=== PATIENT | male | born 1970 | race Caucasian/White ===

== ENCOUNTER 2018-05-01 12:06 | Emergency (ER) | payer BC ==
[2018-05-01] MEDS ORDERED: Sodium Chloride 0.9% 1000 ML 1,000 ML IV STA (13:11)
[2018-05-01] MEDS ORDERED: Zofran 4 MG/2 ML VIAL IV ONE (13:11)
--- NOTE | 2018-05-01 13:11 | ERPHSYRPT ---
- History of Present Illness Time Seen by Provider: 05/01/18 13:06 Source: patient Exam Limitations: no limitations Patient Subjective Stated Complaint: cough x 3 days. general body aches. ridge has been coughing up. denies fever. but has felt hot and cold. vomiting x 3 days. Triage Nursing Assessment: alert and obvious sick. ridge has been sick x 3 days. productive cough of greenish. ridge is now in his head with congerstion. denies fever. lungs clear bilaterally. states has been vomiting x 3 days. abdomen soft. + BS X 4. Physician History: The patient is a 47-year-old male complaining of cough and muscle aches for 3 days. He is also been vomiting. He hasn't been able to keep liquids down for the past 2-3 days. He has a headache. He denies sore throat. He denies diarrhea. He did not even influenza vaccination this year. He has head congestion. His past medical history is significant only for GERD. Timing/Duration: day(s) (3) Cough Quality/Degree: moderate, sputum Possible Cause: no prior episodes Modifying Factors: Improves With: coughing Associated Symptoms: cough, lightheadedness, muscle aches, nasal congestion - Review of Systems Constitutional: No Fever, No Chills Eyes: No Symptoms Ears, Nose, & Throat: No Symptoms Respiratory: Cough Cardiac: Chest Pain (with cough) Abdominal/Gastrointestinal: Nausea, Vomiting, No Abdominal Pain, No Diarrhea Genitourinary Symptoms: No Dysuria Musculoskeletal: No Back Pain, No Neck Pain Skin: No Rash Neurological: No Dizziness, No Focal Weakness, No Sensory Changes Psychological: No Symptoms Endocrine: No Symptoms Hematologic/Lymphatic: No Symptoms Immunological/Allergic: No Symptoms All Other Systems: Reviewed and Negative - Past Medical History Pertinent Past Medical History: Yes GI Medical History: GERD - Past Surgical History Past Surgical History: No - Social History Smoking Status: Never smoker Exposure to second hand smoke: No Drug Use: none Patient Lives Alone: No - Nursing Vital Signs Nursing Vital Signs: Initial Vital Signs Temperature 98.6 F 05/01/18 12:19 Pulse Rate 88 05/01/18 12:19 Respiratory Rate 22 05/01/18 12:19 Blood Pressure 120/86 05/01/18 12:19 O2 Sat by Pulse Oximetry 97 05/01/18 12:19 Pain Scale Pain Intensity 8 - Physical Exam General Appearance: mild distress Eye Exam: PERRL/EOMI, eyes nml inspection Ears, Nose, Throat Exam: TMs normal, pharynx normal, moist mucous membranes, pharyngeal erythema Neck Exam: normal inspection, non-tender, supple, full range of motion Respiratory Exam: normal breath sounds, lungs clear, No respiratory distress Cardiovascular Exam: regular rate/rhythm, normal heart sounds Gastrointestinal/Abdomen Exam: soft, No tenderness Rectal Exam: not done Back Exam: normal inspection, No CVA tenderness, No vertebral tenderness Extremity Exam: normal inspection, normal range of motion Neurologic Exam: alert, oriented x 3, cooperative, normal mood/affect, sensation nml, No motor deficits Skin Exam: normal color, warm, dry, No rash Lymphatic Exam: No adenopathy SpO2 Interpretation: normal SpO2: 97 O2 Delivery: Room Air - Radiology Exams Chest X-ray Interpretation: Interpreted by me, Infiltrates (right lower lung infiltrate, no comps) Ordered Tests: Active Orders 24 hr Category Date Time Status CHEST 2 VIEWS (PA AND LAT) Stat Exams 05/01/18 13:13 Taken CBC W DIFF Stat Lab 05/01/18 13:25 Completed CMP Stat Lab 05/01/18 13:25 Completed Lactic Acid Stat Lab 05/01/18 13:20 Completed Medication Summary Generic Name Dose Route Start Last Admin Trade Name Freq PRN Reason Stop Dose Admin Ceftriaxone Sodium/Dextrose 1 g in 50 mls @ 100 mls/hr 05/01/18 15:18 Rocephin 1 Gm-D5w 50 Ml Bag IV 05/01/18 15:47 STAT STA Discontinued Medications Generic Name Dose Route Start Last Admin Trade Name Freq PRN Reason Stop Dose Admin Sodium Chloride 1,000 mls @ 999 mls/hr 05/01/18 13:11 05/01/18 14:41 Sodium Chloride 0.9% 1000 Ml IV 05/01/18 14:11 Infused .Q1H1M STA Infusion Sodium Chloride Confirm 05/01/18 13:25 Sodium Chloride 0.9% 1000 Ml Administered 05/01/18 13:26 Dose 1,000 mls @ ud .ROUTE .STK-MED ONE Ceftriaxone Sodium/Dextrose Confirm 05/01/18 15:22 Rocephin 1 Gm-D5w 50 Ml Bag Administered 05/01/18 15:23 Dose 1 g in 50 mls @ ud IV .STK-MED ONE Ketorolac Tromethamine 30 mg 05/01/18 13:12 05/01/18 13:35 Toradol 30 Mg Injection IV 05/01/18 13:13 30 mg STAT ONE Administration Ketorolac Tromethamine Confirm 05/01/18 13:25 Toradol 30 Mg Injection Administered 05/01/18 13:26 Dose 30 mg .ROUTE .STK-MED ONE Ondansetron HCl 4 mg 05/01/18 13:11 05/01/18 13:34 Zofran 4 Mg/2 Ml Vial IV 05/01/18 13:12 4 mg STAT ONE Administration Ondansetron HCl Confirm 05/01/18 13:25 Zofran 4 Mg/2 Ml Vial Administered 05/01/18 13:26 Dose 4 mg .ROUTE .STK-MED ONE Lab/Rad Data: Laboratory Result Diagrams 05/01/18 13:25 05/01/18 13:25 Laboratory Results 05/01/18 05/01/18 05/01/18 Range/Units 13:25 13:25 13:25 WBC 5.9 (4.0-10.5) K/mm3 RBC 5.02 (4.1-5.6) M/mm3 Hgb 15.1 (12.5-18.0) gm/dl Hct 44.2 (42-50) % MCV 88.0 (78-100) fl MCH 30.1 (26-32) pg MCHC 34.2 (32-36) g/dl RDW 14.0 (11.5-14.0) % Plt Count 186 (150-450) K/mm3 MPV 10.1 H (6-9.5) fl Gran % 72.0 H (36.0-66.0) % Eos # (Auto) 0.01 (0-0.5) Absolute Lymphs (auto) 0.75 L (1.0-4.6) Absolute Monos (auto) 0.87 (0.0-1.3) Lymphocytes % 12.8 L (24.0-44.0) % Monocytes % 14.8 H (0.0-12.0) % Eosinophils % 0.2 (0.00-5.0) % Basophils % 0.2 (0.0-0.4) % Absolute Granulocytes 4.22 (1.4-6.9) Basophils # 0.01 (0-0.4) Sodium 137 (137-145) mmol/L Potassium 3.7 (3.5-5.1) mmol/L Chloride 100 (98-107) mmol/L Carbon Dioxide 23 (22-30) mmol/L Anion Gap 17.5 H (5-15) MEQ/L BUN 17 (9-20) mg/dL Creatinine 1.15 (0.66-1.25) mg/dL Estimated GFR > 60.0 ML/MIN Glucose 113 H (74-106) mg/dL Lactic Acid (0.4-2.0) Calcium 9.3 (8.4-10.2) mg/dL Total Bilirubin 0.60 (0.2-1.3) mg/dL AST 52 (17-59) U/L ALT 32 (0-50) U/L Alkaline Phosphatase 52 (38-126) U/L Serum Total Protein 7.9 (6.3-8.2) g/dL Albumin 4.8 (3.5-5.0) g/dL Influenza Type A Ag POSITIVE (NEGATIVE) Influenza Type B Ag NEGATIVE (NEGATIVE) RSV (PCR) NEGATIVE (Negative) Group A Strep Antibody NEGATIVE (NEGATIVE) 05/01/18 Range/Units 13:20 WBC (4.0-10.5) K/mm3 RBC (4.1-5.6) M/mm3 Hgb (12.5-18.0) gm/dl Hct (42-50) % MCV (78-100) fl MCH (26-32) pg MCHC (32-36) g/dl RDW (11.5-14.0) % Plt Count (150-450) K/mm3 MPV (6-9.5) fl Gran % (36.0-66.0) % Eos # (Auto) (0-0.5) Absolute Lymphs (auto) (1.0-4.6) Absolute Monos (auto) (0.0-1.3) Lymphocytes % (24.0-44.0) % Monocytes % (0.0-12.0) % Eosinophils % (0.00-5.0) % Basophils % (0.0-0.4) % Absolute Granulocytes (1.4-6.9) Basophils # (0-0.4) Sodium (137-145) mmol/L Potassium (3.5-5.1) mmol/L Chloride (98-107) mmol/L Carbon Dioxide (22-30) mmol/L Anion Gap (5-15) MEQ/L BUN (9-20) mg/dL Creatinine (0.66-1.25) mg/dL Estimated GFR ML/MIN Glucose (74-106) mg/dL Lactic Acid 0.9 (0.4-2.0) Calcium (8.4-10.2) mg/dL Total Bilirubin (0.2-1.3) mg/dL AST (17-59) U/L ALT (0-50) U/L Alkaline Phosphatase (38-126) U/L Serum Total Protein (6.3-8.2) g/dL Albumin (3.5-5.0) g/dL Influenza Type A Ag (NEGATIVE) Influenza Type B Ag (NEGATIVE) RSV (PCR) (Negative) Group A Strep Antibody (NEGATIVE) - Progress Progress: improved Air Movement: good Progress Note: 05/01/18 15:24 Pt given toradol 30 and fluids by IV and is feeling better. Antibiotics given: Yes Counseled pt/family regarding: lab results, diagnosis, need for follow-up, rad results - Departure Time of Disposition: 15:24 Departure Disposition: Home Clinical Impression: Influenza A, Infiltrate noted on imaging study Condition: Stable Critical Care Time: No Referrals: NATHAN FERNÁNDEZ MD [Primary Care Provider] - Additional Instructions: You have an influenza a infection. You also have an infiltrate (pneumonia) in your right lung. You were given Toradol 30 mg, Rocephin 1 g, and fluids by IV in the ER. Take azithromycin 500 mg on day one. Then take azithromycin 250 mg daily for days 2 through 5. Follow-up with your primary medical doctor in 2-3 days. Prescriptions: Azithromycin 250 mg [Zithromax 250 MG TABLET] 250 mg PO ZPACK #6 tablet
[2018-05-01] MEDS ORDERED: TORAdol 30 mg Injection IV ONE (13:12)
[2018-05-01] MEDS ORDERED: Zofran 4 MG/2 ML VIAL ONE (13:25)
[2018-05-01] MEDS ORDERED: TORAdol 30 mg Injection ONE (13:25)
[2018-05-01] MEDS ORDERED: Sodium Chloride 0.9% 1000 ML 1,000 ML ONE (13:25)
[2018-05-01 13:37] LABS: BASOPHIL % 0.2 % (0.0-0.4); Basophil (Absolute #) 0.01 (0-0.4); Eosinophil % 0.2 % (0.00-5.0); Eosinophil (Absolute #) 0.01 (0-0.5); Granulocyte Absolute (ANC) 4.22 (1.4-6.9); Hematocrit 44.2 % (42-50); Hemoglobin 15.1 gm/dl (12.5-18.0); Lymphocyte (Absolute #) 0.75 (1.0-4.6); Lymphocytes % 12.8 % (24.0-44.0); Mean Corpuscular Hemoglobin 30.1 pg (26-32); Mean Corpuscular Hgb Concent. 34.2 g/dl (32-36); Mean Platelet Volume 10.1 fl (6-9.5); Monocyte (Absolute #) 0.87 (0.0-1.3); Monocytes % 14.8 % (0.0-12.0); Platelet Count 186 K/mm3 (150-450); Red Blood Count 5.02 M/mm3 (4.1-5.6); White Blood Count 5.9 K/mm3 (4.0-10.5)
[2018-05-01 13:43] LABS: ALBUMIN 4.8 g/dL (3.5-5.0); ALKALINE PHOSPHATASE 52 U/L (38-126); ANION GAP 17.5 MEQ/L (5-15); BLOOD UREA NITROGEN 17 mg/dL (9-20); CHLORIDE 100 mmol/L (98-107); Calcium 9.3 mg/dL (8.4-10.2); Carbon Dioxide 23 mmol/L (22-30); Creatinine 1 1.15 mg/dL (0.66-1.25); Glucose 113 mg/dL (74-106); Potassium 3.7 mmol/L (3.5-5.1); SGOT/AST 52 U/L (17-59); SGPT/ALT 32 U/L (0-50); SODIUM 137 mmol/L (137-145); Total Protein 7.9 g/dL (6.3-8.2)
[2018-05-01 14:14] LABS: Group A Strep NEGATIVE (NEGATIVE)
[2018-05-01 14:15] LABS: RESPIRATORY SYNCTIAL VIRUS NEGATIVE (Negative)
[2018-05-01 14:16] LABS: INFLUENZA B NEGATIVE (NEGATIVE)
[2018-05-01 14:17] LABS: INFLUENZA A POSITIVE (NEGATIVE)
[2018-05-01] MEDS ORDERED: ROCEPHIN 1 Gm-D5w 50 ml Bag** 1 G/50 ML IVPB IV STA (15:18)
[2018-05-01] MEDS ORDERED: ROCEPHIN 1 Gm-D5w 50 ml Bag** 1 G/50 ML IVPB IV ONE (15:22)
[2018-05-01 15:43] VITALS: BP 143/77; PULSE 84; O2SAT 93
--- NOTE | 2018-05-01 19:08 | XRAY ---
Indication: Cough. Comparison: None PA/lateral chest demonstrates mild right hemidiaphragm elevation with subtle right base infiltrate versus atelectasis. Remaining heart, left lung, and bony thorax normal.
== END 2018-05-01 15:48 | disposition home or self-care (01) ==
LOC: ED 12:06
DX: J10.1 Influenza due to other identified influenza virus with other respiratory manifestations (principal); R91.8 Other nonspecific abnormal finding of lung field; K21.9 Gastro-esophageal reflux disease without esophagitis
CPT/HCPCS: 36415; 71046; 80053; 83605; 85025; 87631; 87651; 96360; 96365; 96374; 96375; 99284; J0696; J1885; J2405